=== PATIENT | male | born 2000 | race Caucasian/White ===

== ENCOUNTER → 2024-05-23 | Outpatient (CLI) | payer SELFPAY ==
[2024-05-23 12:28] LABS: Absolute Lymphocyte Count 1.62 X10^3/uL (0.83-4.51); Absolute Neutrophil Count 6.6 X10^3/uL (2.0-7.7); Basophil# 0.04 X10^3/uL; Basophil% 0.4 % (0-1); Eosinophil# 0.09 X10^3/uL; Hematocrit 41.6 % (40-54); Hemoglobin 13.3 g/dL (13.0-16.5); Lymphocyte # 1.62 X10^3/ul (0.83-4.51); Lymphocyte % 18.1 % (19-41); Mean Corpuscular Hgb 30.6 pg (27.0-32.0); Mean Corpuscular Volume 95.9 fL (80-94); Monocyte# 0.59 X10^3/uL; Monocyte% 6.6 % (0-10); NRBC Flagged by Analyzer 0 % (0-5); Neutrophil % 73.7 % (47-70); Platelet Count 196 K/mm3 (150-450); RBC Distribution Width CV 13.8 % (11.6-14.6); RBC Distribution Width SD 49.1 fl (35.1-43.9); Red Blood Count 4.34 M/mm3 (4.6-6.2)
[2024-05-23 12:40] LABS: ALB/GLOB Ratio 1.1 RATIO (0.9-2.4); AST(SGOT) 13 U/L (15-37); Alanine Aminotransfer ALT/SGPT 35 U/L (16-61); Albumin, Serum 3.9 g/dL (3.2-5.0); Alkaline Phosphatase 55 U/L (45-117); Anion Gap 7 (5-15); BUN 27 mg/dL (7-18); BUN/Creat Ratio 43.5 RATIO (10-20); Calcium,Total 9.8 mg/dL (8.5-10.1); Chloride 105 mmol/L (98-107); Cholesterol 164 mg/dL (200); Creatinine, Serum 0.62 mg/dL (0.70-1.30); EST Glomerular Filtration Rate 168 mL/min (>60); Est Glom Filt Rate - Afr Amer 203 mL/min (>60); Globulin 3.6 g/dL (2.2-4.2); Glucose 96 mg/dL (74-106); High Density Lipoprotein 57 mg/dL; Potassium 3.9 mmol/L (3.5-5.1); Protein, Total 7.5 g/dL (6.4-8.2); Sodium Level 138 mmol/L (136-145); Triglycerides 49 mg/dL; Very Low Density Lipoprotein 10 mg/dL (5-40)
== END | disposition home or self-care (01) ==
LOC: BFHLAB 09:26
PROVIDERS: PCP Nurse Practitioner Family; Referring Provider Nurse Practitioner Family; Visit Provider Nurse Practitioner Family
DX: Z00.01 Encounter for general adult medical examination with abnormal findings (principal)
CPT/HCPCS: 36415; 80053; 80061; 85025

== ENCOUNTER 2024-07-11 09:07 | Emergency (ER) | payer OTHER, SELFPAY ==
[2024-07-11 09:07] VITALS: BP 122/96; PULSE 52; RESP 18; TEMP 37.2; O2SAT 100; BMI 30.3
--- NOTE | 2024-07-11 09:16 | CT_ITS ---
STUDY: CT ABDOMEN AND PELVIS WITH CONTRAST REASON FOR EXAM: Male, 24 years old. Lower abd pain, left abdomen pain RADIATION DOSAGE (If Supplied By Facility): CTDIvol = ( 16.39 ) mGy, DLP = ( 1105.58 ) mGycm TECHNIQUE: Transaxial images were obtained from the dome of the diaphragm to the symphysis pubis without oral contrast. IV 100mL Isovue-370 was administered. Sagittal and coronal images were reconstructed. Individualized dose optimization techniques were used for this CT. COMPARISON: None. FINDINGS: The visualized lung bases are unremarkable. The visualized portions of the heart are within normal limits. Normal liver. Normal gallbladder and extrahepatic biliary system. Normal spleen. Normal pancreas. Normal bilateral adrenal glands. Normal right kidney. Normal left kidney. There is fluid filled stomach. Fluid is seen within multiple nondilated small bowel loops. Fluid is seen within the mesenteric fat at the level of the root of the mesentery. A small amount of free fluid is seen in the cul-de-sac. Findings are suggestive of a gastroenteritis. Normal colon. The appendix is visualized and appears normal. Normal abdominal aorta. Normal inferior vena cava. Normal retroperitoneum. Normal urinary bladder. Normal abdominal wall. Normal osseous structures. CT/Abdomen/Pelvis W IV Cont ONLY IMPRESSION: Fluid-filled small bowel loops with fluid in the root of the mesentery as well as small amount of free fluid in the pelvis. Findings are suggestive of gastroenteritis. Electronically Signed: Rafat Rivera MD at 10:12 EST ,
[2024-07-11 09:24] LABS: Absolute Lymphocyte Count 1.44 X10^3/uL (0.83-4.51); Absolute Neutrophil Count 8.2 X10^3/uL (2.0-7.7); Basophil# 0.05 X10^3/uL; Basophil% 0.5 % (0-1); Eosinophil# 0.03 X10^3/uL; Eosinophils% 0.3 % (0-5); Hematocrit 44.8 % (40-54); Lymphocyte # 1.44 X10^3/ul (0.83-4.51); Lymphocyte % 13.8 % (19-41); Mean Corp Hgb Conc 33.5 g/dL (32-36); Mean Corpuscular Hgb 31.5 pg (27.0-32.0); Mean Corpuscular Volume 94.1 fL (80-94); Mean Platelet Vol. 9.3 fl (6.2-12.0); Monocyte# 0.63 X10^3/uL; Monocyte% 6.1 % (0-10); NRBC Flagged by Analyzer 0 % (0-5); Neutrophil # 8.21 X10^3/uL (2.7-7.7); Neutrophil % 78.8 % (47-70); Platelet Count 204 K/mm3 (150-450); RBC Distribution Width CV 12.9 % (11.6-14.6); RBC Distribution Width SD 45.1 fl (35.1-43.9); Red Blood Count 4.76 M/mm3 (4.6-6.2); White Blood Count 10.4 K/mm3 (4.4-11.0)
[2024-07-11] MEDS: 0.9% Normal Saline (1000mL) 1,000 ML 999 ML IV (09:24)
[2024-07-11] MEDS: Morphine 4 MG/ML Syringe IV (09:24)
[2024-07-11] MEDS: Ondansetron 4 MG/2 ML Vial IV (09:24)
--- NOTE | 2024-07-11 09:30 | EDS_ITS ---
HPI History of Present Illness Chief Complaint: Abd Pain Narrative Narrative: Patient is a 24-year-old male with past medical history of arthritis who presents to the emergency department with a chief complaint of abdominal pain radiating to his back. Patient states that around 7:00 this morning he noted that he developed abdominal pain and then nausea. Patient states that he has not had any previous abdominal surgeries states that he still has his appendix and his gallbladder. Patient denies any recent sick contacts. He states that this has happened in the past and he had a full workup including a CT scan and everything came back normal. Patient rates his pain a 8 out of 10 currently. Denies any history of kidney stones. [facility] Medical History Arthritis Home Medications ?Medication ?Instructions ?Recorded ?Last Taken ?Type No Known/Unobtainable [No Known 10/03/14 Unknown History Home Medications] Allergy/AdvReac Type Severity Reaction Status Date / Time acetaminophen (From [place]) Allergy Other Verified 07/11/24 09:07 hydrocodone bitartrate (From Allergy Other Verified 07/11/24 09:07 [place]) Surgical History History of ankle surgery Social History Smoking Status: Former smoker ROS ROS ED ROS Narrative Constitutional: Denies any fevers, chills, lightheadedness, dizziness, Eyes: Denies change in vision double vision blurry vision Cardiovascular: Denies chest pain or palpitations Respiratory: Denies coughing wheezing shortness of breath Abdomen: Complains of abdominal pain and nausea as noted above denies any vomiting or diarrhea : Denies any urinary symptoms Neurological: Denies any numbness, weakness, tingling Musculoskeletal: Complains of back pain and as noted above Skin: Denies any rashes or lesions EXAM Physical Exam Narrative Exam Narrative: General: Patient lying in bed resting comfortably did not appear to be acute distress Head: Atraumatic, normocephalic Eyes: PERRL bilateral, EOMI bilateral, no conjunctival injection noted Neck: Soft, supple, trachea midline Cardiovascular: Regular rate and rhythm no murmurs gallops rubs noted Respiratory: Clear to auscultation bilaterally Abdomen: Soft, nondistended, tender to palpation in the left lower quadrant no rebound or guarding on exam, bowel sounds present x 4 Extremities: +5/5 strength noted in the bilateral upper and lower extremities, no pedal edema on exam Neurological: Patient following commands knew that he was at [facility] years 2023 Skin: Warm, dry, intact no rashes or lesions noted Const Vital Signs: 07/11/24 09:07 Temperature 99 F Temperature Source Temporal Pulse Rate 52 L Respiratory Rate 18 Blood Pressure 122/96 H Blood Pressure Mean 104 Pulse Ox 100 Oxygen Delivery Method Room Air MDM MDM MDM Narrative Medical decision making narrative: Patient is a 24-year-old male who presented to the emergency department chief complaint of abdominal pain and nausea. Patient will have a workup performed here on the differential diagnose includes Melamin to appendicitis, diverticulitis, pancreatitis, urolithiasis, UTI. Once workup is obtained reviewed he will be reevaluated. Patient be given morphine Zofran. Lab Data Labs: Laboratory Results - last 24 hr 07/11/24 09:19 WBC 10.4 RBC 4.76 Hgb 15.0 Hct 44.8 MCV 94.1 H MCH 31.5 MCHC 33.5 RDW Std Deviation 45.1 H RDW Coeff of Judy 12.9 Plt Count 204 MPV 9.3 Immature Gran % (Auto) 0.500 Neut % (Auto) 78.8 H Lymph % (Auto) 13.8 L [place] % (Auto) 6.1 Eos % (Auto) 0.3 Baso % (Auto) 0.5 Absolute Neuts (auto) 8.2 H Absolute Lymphs (auto) 1.44 Nucleated RBC % 0 Discharge Plan Triage Chief Complaint: Abd Pain ED Provider: Hilton Medina Dx/Rx/DC Orders Prescriptions: No Action No Known Home Medications Primary Care Provider: Keely Bear Referrals: Keely Bear, RV DETAILER-C [Primary Care Provider] - Print Language: Maori
--- NOTE | 2024-07-11 09:30 | EX.ED.DYSGE1 ---
HPI History of Present Illness Chief Complaint: Abd Pain Narrative Narrative: Patient is a 24-year-old male with past medical history of arthritis who presents to the emergency department with a chief complaint of abdominal pain radiating to his back. Patient states that around 7:00 this morning he noted that he developed abdominal pain and then nausea. Patient states that he has not had any previous abdominal surgeries states that he still has his appendix and his gallbladder. Patient denies any recent sick contacts. He states that this has happened in the past and he had a full workup including a CT scan and everything came back normal. Patient rates his pain a 8 out of 10 currently. Denies any history of kidney stones. PFSH PFS Medical History Arthritis Home Medications ?Medication ?Instructions ?Recorded ?Last Taken ?Type hyoscyamine sulfate 0.125 mg 0.125 mg PO Q6H PRN dyspepsia #20 07/11/24 Unknown Rx tablet (Levsin) tabs ondansetron 4 mg disintegrating 4 mg PO Q6H PRN nausea and 07/11/24 Unknown Rx tablet vomiting #20 tabs Allergy/AdvReac Type Severity Reaction Status Date / Time acetaminophen (From [place]) Allergy Other Verified 07/11/24 09:07 hydrocodone bitartrate (From Allergy Other Verified 07/11/24 09:07 [place]) Surgical History History of ankle surgery Social History Smoking Status: Former smoker ROS ROS ED ROS Narrative Constitutional: Denies any fevers, chills, lightheadedness, dizziness, Eyes: Denies change in vision double vision blurry vision Cardiovascular: Denies chest pain or palpitations Respiratory: Denies coughing wheezing shortness of breath Abdomen: Complains of abdominal pain and nausea as noted above denies any vomiting or diarrhea : Denies any urinary symptoms Neurological: Denies any numbness, weakness, tingling Musculoskeletal: Complains of back pain and as noted above Skin: Denies any rashes or lesions EXAM Physical Exam Narrative Exam Narrative: General: Patient lying in bed resting comfortably did not appear to be acute distress Head: Atraumatic, normocephalic Eyes: PERRL bilateral, EOMI bilateral, no conjunctival injection noted Neck: Soft, supple, trachea midline Cardiovascular: Regular rate and rhythm no murmurs gallops rubs noted Respiratory: Clear to auscultation bilaterally Abdomen: Soft, nondistended, tender to palpation in the left lower quadrant no rebound or guarding on exam, bowel sounds present x 4 Extremities: +5/5 strength noted in the bilateral upper and lower extremities, no pedal edema on exam Neurological: Patient following commands knew that he was at [facility] years 2023 Skin: Warm, dry, intact no rashes or lesions noted Const Vital Signs: 07/11/24 09:07 07/11/24 11:31 Temperature 99 F 97.9 F Temperature Source Temporal Oral Pulse Rate 52 L 69 Respiratory Rate 18 15 Blood Pressure 122/96 H 134/72 H Blood Pressure Mean 104 92 Pulse Ox 100 98 Oxygen Delivery Method Room Air Room Air MDM MDM MDM Narrative Medical decision making narrative: Patient is a 24-year-old male who presented to the emergency department chief complaint of abdominal pain and nausea. Patient will have a workup performed here on the differential diagnose includes Melamin to appendicitis, diverticulitis, pancreatitis, urolithiasis, UTI. Once workup is obtained reviewed he will be reevaluated. Patient be given morphine Zofran. Patient CBC reviewed and showed no evidence leukocytosis white blood count normal at 10.4, hemoglobin 15, platelet count noted be 204. Patient's sodium normal at 138, potassium normal at 4.2, creatinine normal at 0.82. Patient's AST and ALT were 16 and 28 respectively. Patient's lipase normal at 19. Patient's urinalysis reviewed and showed no evidence of infection. Patient CT abdomen pelvis with IV contrast reviewed showed fluid filled small bowel loops with fluid in the root of the mesentery as well as small amount of free fluid in the pelvis findings suggestive of gastroenteritis. On reevaluation the patient he is feeling much improved. Patient states that he has will lump on his left scrotum I did perform a testicular exam there is no lump noted in the testicle itself this is on the skin and appears to be a pimple in nature, no testicular tenderness bilaterally, no tenderness over the epididymis bilaterally, no urethral discharge noted, no concern for inguinal hernia, vertical lie of the bilateral testicles no concern for testicular torsion. Did discuss results with the patient he is feeling better he would like to go home at this point time. Patient was encouraged to follow-up with his primary care physician outpatient and return with worsening symptoms or concerns. Prescriptions for Bentyl as well as Zofran will be sent to the pharmacy he was advised to eat a bland diet and advance as tolerated. He is agreeable this plan all question concerns answered he is discharged home in stable condition. Lab Data Labs: Laboratory Results - last 24 hr 07/11/24 07/11/24 09:19 10:10 WBC 10.4 RBC 4.76 Hgb 15.0 Hct 44.8 MCV 94.1 H MCH 31.5 MCHC 33.5 RDW Std Deviation 45.1 H RDW Coeff of Judy 12.9 Plt Count 204 MPV 9.3 Immature Gran % (Auto) 0.500 Neut % (Auto) 78.8 H Lymph % (Auto) 13.8 L [place] % (Auto) 6.1 Eos % (Auto) 0.3 Baso % (Auto) 0.5 Absolute Neuts (auto) 8.2 H Absolute Lymphs (auto) 1.44 Nucleated RBC % 0 Sodium 138 Potassium 4.2 Chloride 104 Carbon Dioxide 29.0 Anion Gap 5 BUN 20 H Creatinine 0.82 Estim Creat Clear Calc 155.16 Est GFR (MDRD) Af Amer 146 Est GFR (MDRD) Non-Af 121 BUN/Creatinine Ratio 24.2 H Glucose 123 H Calcium 9.9 Total Bilirubin 0.30 AST 16 ALT 28 Alkaline Phosphatase 72 Total Protein 7.7 Albumin 4.2 Globulin 3.5 Albumin/Globulin Ratio 1.2 Lipase 19 Urine Color Yellow Urine Clarity Clear Urine pH 6.0 Ur Specific [place] 1.015 Urine Protein 15 H Urine Glucose (UA) Normal Urine Ketones 15 H Urine Occult Blood Negative Urine Nitrite Negative Urine Bilirubin Negative Urine Urobilinogen Normal Ur Leukocyte Esterase Negative Urine RBC 0 SEEN Urine WBC 0 SEEN Ur Squamous Epith Cells 0 SEEN Urine Bacteria 0 SEEN Urine Mucus 0 SEEN Radiography Diagnostic Testing: Clinical Impression(s) from Imaging Studies Abdomen/Pelvis CT 07/11/24 09:16 IMPRESSION: Fluid-filled small bowel loops with fluid in the root of the mesentery as well as small amount of free fluid in the pelvis. Findings are suggestive of gastroenteritis. Electronically Signed: Rafat Rivera MD at 10:12 EST , Discharge Plan Triage Chief Complaint: Abd Pain ED Provider: Hilton Medina Dx/Rx/DC Orders Clinical Impression: Viral gastroenteritis Prescriptions: New hyoscyamine sulfate [Levsin] 0.125 mg tablet 0.125 mg PO Q6H PRN (Reason: dyspepsia) Qty: 20 0RF ondansetron 4 mg tablet,disintegrating 4 mg PO Q6H PRN (Reason: nausea and vomiting) Qty: 20 0RF Primary Care Provider: Keely Bear Referrals: Keely Bear, WIRE DRAWING MACHINE OPERATOR-C [Primary Care Provider] - Activity Restrictions/Additional Instructions: Follow-up with your primary care physician outpatient setting. Use prescriptions as prescribed. Start with a bland diet and advance as tolerated. Return with worsening symptoms or any other concerns Print Language: Korean Disposition Disposition: Home, Self Care
[2024-07-11 09:41] LABS: ALB/GLOB Ratio 1.2 RATIO (0.9-2.4); AST(SGOT) 16 U/L (15-37); Alanine Aminotransfer ALT/SGPT 28 U/L (16-61); Albumin, Serum 4.2 g/dL (3.2-5.0); Alkaline Phosphatase 72 U/L (45-117); Anion Gap 5 (5-15); BUN 20 mg/dL (7-18); BUN/Creat Ratio 24.2 RATIO (10-20); Calcium,Total 9.9 mg/dL (8.5-10.1); Chloride 104 mmol/L (98-107); Creatinine, Serum 0.82 mg/dL (0.70-1.30); EST Glomerular Filtration Rate 121 mL/min (>60); Est Glom Filt Rate - Afr Amer 146 mL/min (>60); Estimated Creatinine Clearance 155.16 ml/min; Globulin 3.5 g/dL (2.2-4.2); Glucose 123 mg/dL (74-106); Lipase 19 U/L (13-75); Potassium 4.2 mmol/L (3.5-5.1); Protein, Total 7.7 g/dL (6.4-8.2); Sodium Level 138 mmol/L (136-145)
[2024-07-11 10:15] LABS: Bacteria 0 SEEN /hpf (None Seen); Mucous, Urine 0 SEEN /hpf (<or=2+); Red Blood Cells-Urine 0 SEEN /hpf (0-5); Squamous Epithelial Cells - UA 0 SEEN /hpf (0-5); White Blood Cells 0 SEEN /hpf (0-5)
[2024-07-11 10:18] LABS: Color, Urine Yellow (Yellow); Glucose, Dipstick Normal (Normal); Ketone-Dipstick 15 mg/dl (Negative); Leukocyte Esterase-Dipstick Negative /ul (Negative); Nitrite-Dipstick Negative (Negative); Occult Blood-Urine Negative /ul (Negative); Protein-Dipstick 15 mg/dl (Negative); Specific Gravity, Urine 1.015 (1.002-1.030); Urine Bilirubin Dipstick Negative (Negative); Urine Clarity Clear (Clear); Urine Urobilinogen Normal (Normal)
[2024-07-11 11:31] VITALS: BP 134/72; PULSE 69; RESP 15; TEMP 36.6; O2SAT 98
[2024-07-11 12:10] VITALS: BP 127/63; PULSE 72; RESP 15; TEMP 36.4; O2SAT 100
== END 2024-07-11 12:11 | disposition home or self-care (01) ==
PROVIDERS: Emergency Provider Emergency Medicine; PCP Nurse Practitioner Family; Visit Provider Emergency Medicine
DX: A08.4 Viral intestinal infection, unspecified (principal); Z87.891 Personal history of nicotine dependence; N50.89 Other specified disorders of the male genital organs
CPT/HCPCS: 74177; 80053; 81001; 83690; 85025; 96361; 96374; 96375; 99283; Q9967; A4216; J2405

== ENCOUNTER 2025-05-11 11:07 | Day surgery (SDC) | payer SELFPAY ==
--- NOTE | 2025-05-08 16:17 | PAT.ANESEVAL ---
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 When Was Last Pacemaker Check QUESTION #4 FULL TEXT: You/Your Family Experience fever (hyperthermia) with Anesthesia Last Oral Intake Last Oral intake: Last Oral Intake NPO since Meds taken in AM with sips of water? Meds patient instructed to take am of surgery PONV PONV - assembly line brazer: PONV - assembly line brazer Female No 05/08/25 14:39 HX of Motion Sickness Yes 05/08/25 14:39 HX of N/V After Surgery Yes 05/08/25 14:39 Non-Smoker Yes 05/08/25 14:39 Duration of Surgery greater No 05/08/25 14:39 than 60 minutes Number of Risk Factors 3 05/08/25 14:39 PONV Score Moderate Risk 05/08/25 14:39 Height & Weight Height & Weight: Anesthesia: Height & Weight Height 5 ft 9 in 07/11/24 09:07 Respiratory Assessment Respiratory Assessment - assembly line brazer: Respiratory Tract Infection Hx - assembly line brazer Hx Respiratory Tract Infection No 05/08/25 14:39 STOP Sleep Apnea STOP Sleep Apnea - assembly line brazer: STOP Sleep Apnea - assembly line brazer Hx Hypertension No 05/08/25 14:39 Hx Sleep Apnea No 05/08/25 14:39 CPAP No 10/03/14 14:43 BIPAP No 10/03/14 14:43 Do you snore loudly (louder No 05/08/25 14:39 than talking or can be heard Do you often feel tired/ No 05/08/25 14:39 fatigued/ sleepy during daytime? Has anyone observed you stop No 05/08/25 14:39 breathing during sleep? STOP Results Negative 05/08/25 14:39 QUESTION #5 FULL TEXT : Do you snore loudly (louder than talking or can be heard through closed doors)? 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 Specify any problems Hx of Preganancy in last 3 N/A 05/08/25 14:39 Months Nurse Filling Out Transfusion JZOLLINGE 05/08/25 14:39 & Questions: Date: 05/08/25 05/08/25 14:39 Time: 14:42 05/08/25 14:39 Patient unable to answer at this time (ie. confused, unrespo /Reproduction History /Reproductive History - assembly line brazer: /Reproductive Hx- assembly line brazer Hx Now No 05/08/25 14:39 Gestational Age (in weeks): EDC: Hx Hx Para Hx Section SAB No 05/08/25 14:39 PFSH Medical History (Updated 05/08/25 @ 14:39 by Kaitlin Reyes) Alcohol use Former smoker Rheumatoid arthritis Abdominal pain Arthritis Home Medications ?Medication ?Instructions ?Recorded ?Last Taken ?Type hyoscyamine sulfate 0.125 mg 0.125 mg PO Q6H PRN dyspepsia #20 07/11/24 Unknown Rx tablet (Levsin) tabs Allergy/AdvReac Type Severity Reaction Status Date / Time No Known Allergies Allergy Verified 05/08/25 14:35 Family History (Updated 03/23/25 @ 09:35 by Jenifer Price) Father Diabetes Other Alcoholism Surgical History History of ankle surgery Social History Smoking Status: Former smoker Audit: Pertinent Findings Pertinent Findings EKG Perinent findings: 04/27/2017. Normal sinus rhythm possible pericarditis. Recommendation Anesthesia Recommendation Anesthesia recommendation: OPTIMIZED for anesthesia
[2025-05-11] VITALS (7 sets, daily range): BP systolic 90–130; BP diastolic 55–90; PULSE 57–75; RESP 16–20; TEMP 36.2–36.6; O2SAT 99–100; BMI 32.5
[2025-05-11] MEDS: Lactated Ringers 1,000 ML 15 ML IV (11:34)
--- NOTE | 2025-05-11 11:51 | PCM.PRE.AN2 ---
ASA Classification* ASA Classification ASA Classification: 2 Assessment & Plan Anesthesia* Anesthesia Assessment Anesthesia Assessment: Discussed sedation and/or anesthesia options, risks, benefits, and alternatives with patient/parents/legal guardian/POA. Questions invited. The patient/parents/legal guardian/POA seems to understand and agrees to proceed with anesthesia plan. Reviewed the physical assessment, medical history, allergy history and patient home medications list prior to surgery/procedure/anesthetic and documented any changes. Performed airway and anesthesia risk assessments. Anesthesia Type Anesthesia Type: MAC History Source History Obtained from:: Patient and Chart Anesthesia Focused Assessment* Temperature: 98 F Pulse Rate: 59 Blood Pressure: 130/82 Respiratory Rate: 16 Pulse Ox: 100 Oxygen Delivery Method: Room Air Airway Assessment Mouth opens: >3 cm Mallampati Score: I Teeth Condition: Intact (braces) Neck Range of motion (ROM): Full ROM Labs Anesthesia Preop lab: CBC WBC, (4.4-11.0) 10.4 K/mm3 07/11/24, 09: RBC, (4.6-6.2) 4.76 M/mm3 07/11/24, 09:19 Hgb, (13.0-16.5) 15.0 g/dL 07/11/24, :19 Hct, (40-54) 44.8 % 07/11/24, :19 Plt Count, (150-450) 204 K/mm3 07/11/24, 09:19 CHEMISTRY Potassium, (3.5-5.1) 4.2 mmol/L 07/11/24, :19 Sodium, (136-145) 138 mmol/L 07/11/24, 09:19 BUN, (7-18) 20 mg/dL H 07/11/24, 09:19 Creatinine, (0.70-1.30) 0.82 mg/dL 07/11/24, :19 Glucose, (74-106) 123 mg/dL H 07/11/24, :19 COAG Pre-Assessment Diagnosis/Proposed Procedure Planned Operative Procedure(s): Colonoscopy,EGD Anesthesia History 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 When Was Last Pacemaker Check QUESTION #4 FULL TEXT: You/Your Family Experience fever (hyperthermia) with Anesthesia Last Oral Intake Last Oral intake: Last Oral Intake NPO since 07:00 05/11/25 11:26 Meds taken in AM with sips of water? Meds patient instructed to take am of surgery PONV PONV - nuclear powerplant mechanic: PONV - nuclear powerplant mechanic Female No 05/08/25 14:39 HX of Motion Sickness Yes 05/08/25 14:39 HX of N/V After Surgery Yes 05/08/25 14:39 Non-Smoker Yes 05/08/25 14:39 Duration of Surgery greater No 05/08/25 14:39 than 60 minutes Number of Risk Factors 3 05/08/25 14:39 PONV Score Moderate Risk 05/08/25 14:39 Height & Weight Height & Weight: Anesthesia: Height & Weight Height 5 ft 7 in 05/11/25 11:26 Weight: 94.1 kg 05/11/25 11:26 Body Mass Index (BMI) 32.5 05/11/25 11:26 Respiratory Assessment Respiratory Assessment - nuclear powerplant mechanic: Respiratory Tract Infection Hx - nuclear powerplant mechanic Hx Respiratory Tract Infection No 05/08/25 14:39 STOP Sleep Apnea STOP Sleep Apnea - nuclear powerplant mechanic: STOP Sleep Apnea - nuclear powerplant mechanic Hx Hypertension No 05/08/25 14:39 Hx Sleep Apnea No 05/08/25 14:39 CPAP No 10/03/14 14:43 BIPAP No 10/03/14 14:43 Do you snore loudly (louder No 05/08/25 14:39 than talking or can be heard Do you often feel tired/ No 05/08/25 14:39 fatigued/ sleepy during daytime? Has anyone observed you stop No 05/08/25 14:39 breathing during sleep? STOP Results Negative 05/08/25 14:39 QUESTION #5 FULL TEXT : Do you snore loudly (louder than talking or can be heard through closed doors)? 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 Specify any problems Hx of Preganancy in last 3 N/A 05/08/25 14:39 Months Nurse Filling Out Transfusion JZOLLINGE 05/08/25 14:39 & Questions: Date: 05/08/25 05/08/25 14:39 Time: 14:42 05/08/25 14:39 Patient unable to answer at this time (ie. confused, unrespo /Reproduction History /Reproductive History - nuclear powerplant mechanic: /Reproductive Hx- nuclear powerplant mechanic Hx Now No 05/08/25 14:39 Gestational Age (in weeks): EDC: Hx Hx Para Hx Section SAB No 05/08/25 14:39 Active Medications Active Medications: Current Medications Generic Name Dose Route Start Last Admin Trade Name Freq PRN Reason Stop Dose Admin Lactated Ringer's 1,000 mls @ 15 mls/hr 05/11/25 11:30 05/11/25 11:34 IV 15 mls/hr .Q48H GIA Administration PFSH Medical History Alcohol use Former smoker Rheumatoid arthritis Abdominal pain Arthritis Home Medications ?Medication ?Instructions ?Recorded ?Last Taken ?Type hyoscyamine sulfate 0.125 mg 0.125 mg PO Q6H PRN dyspepsia #20 07/11/24 Unknown Rx tablet (Levsin) tabs Allergy/AdvReac Type Severity Reaction Status Date / Time No Known Allergies Allergy Verified 05/11/25 11:26 Family History Father Diabetes Other Alcoholism Surgical History History of ankle surgery Social History Smoking Status: Former smoker Review of Systems (Anesthesia) ROS Narrative System reviewed and no additional complaints, except as documented.
--- NOTE | 2025-05-11 11:59 | HP.PCM_ITS ---
HPI - General General Date of Admission: 05/11/25 Date of Service: 05/11/25 Chief Complaint: abdominal pain HPI Narrative TOSHIA NICOLE, is a 25 M who presents [Chief Complaint: Abdominal pain Pt referred from PCP for abdominal pain. Pt was hospitalized at [place] in January 2025 for his abd pain. He had CT showing dilated fluid-filled small bowel suspicious for small bowel obstruction. Transition not well visualized. and gastric distention. Diagnosed with an ileus. He was placed on bowel rest and NG tube. Discharged with Augmentin 500 mg every 8 hours for one week. OV 8.. patient continues to have abdominal pain. Pain starts in the epigastric region and radiates to the lower quadrants. Pain started in June 2024. It is relieved with Levsin. It is not triggered with oral intake. He has noticed that not eating can be a trigger. Pain is a few times per week. He has 1-2 small bowel movements per day. He did have a CT that showed that he was constipated so he took prune juice and laxatives. He takes ibuprofen almost daily. He denies any prior abdominal surgeries. Patient notes over the past 17 months he has intentionally lost 200 pounds with diet and exercise. ondansetron Discontinued Reason: Pt no longer taking 4 mg PO Q6H PRN 20 tabs 0RF nausea and vomiting ] PFSH Medical History Alcohol use Former smoker Rheumatoid arthritis Abdominal pain Arthritis Home Medications ?Medication ?Instructions ?Recorded ?Last Taken ?Type hyoscyamine sulfate 0.125 mg 0.125 mg PO Q6H PRN dyspe psia #20 07/11/24 Unknown Rx tablet (Levsin) tabs Allergy/AdvReac Type Severity Reaction Status Date / Time No Known Allergies Allergy Verified 05/11/25 11:26 Family History Father Diabetes Other Alcoholism Surgical History History of ankle surgery Social History Smoking Status: Former smoker ROS Constitutional Constitutional: Denies fatigue, fever(s), poor appetite, weight gain or weight loss Gastrointestinal Gastrointestinal: Denies belching, bloating, change in bowel habits, change in stool character, chewing difficulty, coffee ground emesis, constipation, cramping, diarrhea, dyspepsia, dysphagia, early satiety, excessive flatus, fecal incontinence, heartburn, hematemesis, hematochezia, hemorrhoids, loose stools, melena, nausea, odynophagia, rectal bleeding, tenesmus, vomiting or weight changes Vital Signs Vital Signs Vital Signs: 05/11/25 11:26 05/11/25 11:26 05/11/25 11:55 Temperature 98 F 98 F Temperature Source Temporal Pulse Rate 59 L 59 L Respiratory Rate 16 16 Respiratory Pattern Normal Blood Pressure 130/82 H 130/82 H Blood Pressure Mean 98 Blood Pressure Source Monitor Blood Pressure Position Semi-Fowlers Blood Pressure Location Right Arm Pulse Ox 100 100 Oxygen Delivery Method Room Air Room Air Weight Weight: 207 lb 7.28 oz Body Mass Index (BMI) 32.5 Physical Exam Const alert, oriented x3, no apparent distress and healthy appearing General Appearance: cooperative GI normal to inspection, nondistended, normoactive bowel sounds, soft to palpation, non-tender and non-distended Percussion: normal to percussion Rectal Exam: deferred Assessment & Plan Assessment/Plan (1) Diarrhea: (2) IBS (irritable bowel syndrome): PLAN: Assessment and Plan Assessment and Plan (1) Constipation: Status: Acute (2) History of ileus: Status: Acute Plan: Toshia is a 24-year-old male patient here today for evaluation of abdominal pain. Patient endorsing a 200 pound weight loss over the past 17 months which was intentional. In June 2024 patient started to have abdominal pain. This resulted in a few ER visits and hospitalization. He was hospitalized at [place] and in January [address] showing dilated fluid-filled small bowel suspicious for small bowel obstruction. He was admitted and nasogastric tube was placed. His pain did get better at that time but it came back. Recent CT showing constipation although he does not feel constipated. Patient's ileus may have been related to his rapid weight loss. I have concern for SMA syndrome due to rapid weight loss however pain is not typically exacerbated by eating. Will consider CTA. He will undergo EGD and colonoscopy for evaluation of his GI tract. He will continue Levsin for his abdominal pain. - EGD and colonoscopy -Consider CTA - Continue Levsin - Follow-up after endoscopy Medications: Discontinued
--- NOTE | 2025-05-11 12:00 | COLBX_PTH ---
PATIENT: TOSHIA NICOLE LOC: EN U#:[id number] AGE/SX: 25/M ROOM: RE05/11/[address]: Dr. Trevor Cobos DO : 2000 BED: DIS: 05/11/2025 SPEC #: [id number] RECD: 05/11/25 16:25 STATUS: JOVANNY SALLY #: [id number] RAISSA: 05/11/25 12:[address]: Trevor Cobos DEPT: SURGICAL PATHOLOGY RECD BY: Cristian Yanez ENTERED: 05/14/25 11:08 SP TYPE: COLON BX OTHR DR: Keely Bear, ANIMAL HUMANE AGENT SUPERVISOR-C Tissues: A - Duodenum, NOS B - Gastric mucous membrane C - Esophagus, NOS D - Ileum, NOS E - COLON BIOPSY F - Sigmoid colon biopsy Procedures: Special Stain Group I Surgery Specimen Level IV GMS Stain (control) HEADER OPERATION: Colonoscopy, EGD with biopsy PRE-OP DIAGNOSIS: Abdominal pain, short of breath TISSUE SUBMITTED: A- Duodenum biopsy, B- Gastric body biopsy, C- Distal esophagus biopsy, D- Terminal ileum biopsy, E- Random colon biopsy, F- Sigmoid polyp MICROSCOPIC DIAGNOSIS A. Duodenum, biopsy: * No specific pathologic change. * Negative for increased intraepithelial lymphocytes. B. Gastric body, biopsy: * Oxyntic mucosa with mild chronic inflammation. * Negative for Helicobacter-like organisms (H&E). C. Distal esophagus, biopsy: * Squamous mucosa with mild acute inflammation and rare eosinophils. * Columnar mucosa with reactive epithelial change, negative for goblet cell metaplasia. * PASD is negative for fungal organisms. D. Terminal ileum, biopsy: * No specific pathologic change. E. Colon, random, biopsy: * No specific pathologic change. F. Sigmoid colon, polyp, biopsy: * Hyperplastic polyp. MICROSCOPIC DESCRIPTION Slides are reviewed. All matched controls reacted appropriately. These tests were developed and their performance characteristics determined by [facility]. They may not have been cleared or approved by the U.S. Food and Drug Administration. The FDA has determined that such clearance or approval is not necessary. The above immunohistochemical markers and/or special stains have been reviewed by the Pathologist. GROSS DESCRIPTION A. Received in fixative is one container labeled with the patient's name and designated Duodenum biopsy. The specimen consists of two irregular fragments of hopkins tissue that measure 0.2 and 0.7 cm. The specimen is totally submitted in one cassette. B. Received in fixative is one container labeled with the patient's name and designated Gastric body biopsy. The specimen consists of two irregular fragments of hopkins tissue that measure 0.5 and 0.6 cm. The specimen is totally submitted in one cassette. C. Received in fixative is one container labeled with the patient's name and designated Distal esophagus biopsy. The specimen consists of two irregular fragments of hopkins tissue that measure 0.4 and 0.5 cm. The specimen is totally submitted in one cassette. D. Received in fixative is one container labeled with the patient's name and designated Terminal ileum biopsy. The specimen consists of multiple irregular fragments of hopkins tissue that in aggregate measure 1 x 0.6 x 0.1 cm. The specimen is totally submitted in one cassette. E. Received in fixative is one container labeled with the patient's name and designated Random colon biopsy. The specimen consists of multiple irregular fragments of hopkins tissue that in aggregate measure 1 x 0.7 x 0.1 cm. The specimen is totally submitted in one cassette. F. Received in fixative is one container labeled with the patient's name and designated Sigmoid polyp. The specimen consists of one irregular fragment of hopkins tissue that measures 0.3 cm. The specimen is totally submitted in one cassette. [place] 05/14/2025 CPT:58660c5,40395
--- NOTE | 2025-05-11 12:37 | PCM.POST.ANE ---
Anesthesia: Postop Eval I Current Vital Signs Temperature: 97.1 F Pulse Rate: 75 Blood Pressure: 90/55 Respiratory Rate: 20 Pulse Ox: 99 Assessment Airway patent: Yes Spontaneous unlabored respirations: Yes nausea: No Vomiting: No Anesthesia Complication: No Fluid Hydration Crystalloid volume administer (ml): 200 Total IV fluid infused: 200 Progress Note Anesthesia document: Postop Eval 1 completed: Yes
--- NOTE | 2025-05-11 12:40 | OP.EGD_ITS ---
Patient Name: Ginger Cleaning Procedure Date: 05/11/2025 11:58 AM Date of : 2000 Age: 25 Procedure: Upper GI endoscopy Indications: Epigastric abdominal pain, Abdominal pain in the right upper quadrant, Abdominal pain in the left upper quadrant, Functional Dyspepsia, Failure to respond to medical treatment Providers: Trevor Cobos DO Referring MD: Moses Blue Medicines: Monitored Anesthesia Care Patient Profile: This is a 25 year old male. Refer to note in patient chart for documentation of history and physical. Patient has symptoms of acute abdominal cramping, acute abdominal distention, chronic right upper quadrant abdominal pain, acute left upper quadrant abdominal pain, acute epigastric abdominal pain, acute dyspepsia and acute nausea. Complications: No immediate complications. Procedure: Pre-Anesthesia Assessment: - Prior to the procedure, a History and Physical was performed, and patient medications and allergies were reviewed. The patient is competent. The risks and benefits of the procedure and the sedation options and risks were discussed with the patient. All questions were answered and informed consent was obtained. Patient identification and proposed procedure were verified by the physician in the pre-procedure area. Mental Status Examination: alert and oriented. Airway Examination: normal oropharyngeal airway and neck mobility. Respiratory Examination: clear to auscultation. CV Examination: normal. Prophylactic Antibiotics: The patient does not require prophylactic antibiotics. Prior Anticoagulants: The patient has taken no anticoagulant or antiplatelet agents except for NSAID medication. ASA Grade Assessment: II - A patient with mild systemic disease. After reviewing the risks and benefits, the patient was deemed in satisfactory condition to undergo the procedure. The anesthesia plan was to use monitored anesthesia care (MAC). Immediately prior to administration of medications, the patient was re-assessed for adequacy to receive sedatives. The heart rate, respiratory rate, oxygen saturations, blood pressure, adequacy of pulmonary ventilation, and response to care were monitored throughout the procedure. The physical status of the patient was re-assessed after the procedure. After obtaining informed consent, the endoscope was passed under direct vision. Throughout the procedure, the patient's blood pressure, pulse, and oxygen saturations were monitored continuously. The Colonoscope was introduced through the mouth, and advanced to the fourth part of the duodenum. Small bowel enteroscopy was deemed necessary. The upper GI endoscopy was accomplished without difficulty. The patient tolerated the procedure well. Scope In: 12:09:03 PM Scope Out: 12:19:10 PM Total Procedure Duration Time 0 hours 10 minutes 7 seconds Findings: The Z-line was irregular and was found 40 cm from the incisors. Biopsies were taken with a cold forceps for histology. Verification of patient identification for the specimen was done. Estimated blood loss was minimal. Patchy mildly congested mucosa was found in the gastric body. Biopsies were taken with a cold forceps for histology. Biopsies were taken with a cold forceps for Helicobacter pylori testing. Verification of patient identification for the specimen was done. Estimated blood loss was minimal. Patchy mildly erythematous mucosa without active bleeding and with no stigmata of bleeding was found in the entire duodenum. Biopsies were taken with a cold forceps for histology. Verification of patient identification for the specimen was done. Estimated blood loss was minimal. A small hiatal hernia was present. Impression: - Z-line irregular, 40 cm from the incisors. Biopsied. - Congestive gastropathy. Biopsied. - Erythematous duodenopathy. Biopsied. Recommendation: - Discharge patient to home. - Resume previous diet. - Continue present medications. - Await pathology results. Procedure Code(s): --- Professional --- 79576, Small intestinal endoscopy, enteroscopy beyond second portion of duodenum, not including ileum; with biopsy, single or multiple CPT copyright 2021 [employer]. All rights reserved. The codes documented in this report are preliminary and upon lamp developer review may be revised to meet current compliance requirements. Trevor Cobos DO 05/11/2025 12:39:57 PM This report has been signed electronically. Number of Addenda: 0 Note Initiated On: 05/11/2025 11:58 AM
--- NOTE | 2025-05-11 12:40 | OP.PROVAT_ITS ---
05/11/2025 Moses Blue Re : Upper GI endoscopy procedure for Ginger Cleaning Dear Chema This procedure was performed on Sunday, May 11, 2025. My impressions and recommendations are as follows: Impressions : - Z-line irregular, 40 cm from the incisors. Biopsied. - Congestive gastropathy. Biopsied. - Erythematous duodenopathy. Biopsied. Recommendations : - Discharge patient to home. - Resume previous diet. - Continue present medications. - Await pathology results. My findings are described in the full procedure note, which is enclosed. If I can be of further assistance, please feel free to contact me at . Sincerely, Trevor Cobos, 05/11/2025 12:39:57 PM This report has been signed electronically.
--- NOTE | 2025-05-11 12:43 | OP.COLON_ITS ---
Patient Name: Ginger Cleaning Procedure Date: 05/11/2025 12:19 PM Date of : 2000 Age: 25 Procedure: Colonoscopy Indications: Abdominal pain in the left lower quadrant, Periumbilical abdominal pain, Abdominal pain in the right lower quadrant, Clinically significant diarrhea of unexplained origin Providers: Trevor Cobos DO Referring MD: Moses Blue Medicines: Monitored Anesthesia Care Patient Profile: This is a 25 year old male. Refer to note in patient chart for documentation of history and physical. Patient has symptoms of acute abdominal cramping, acute abdominal distention, chronic right upper quadrant abdominal pain, acute left upper quadrant abdominal pain, acute epigastric abdominal pain, acute dyspepsia and acute nausea. Last Colonoscopy: none. The patient's first colonoscopy is today. Complications: No immediate complications. Procedure: Pre-Anesthesia Assessment: - Prior to the procedure, a History and Physical was performed, and patient medications and allergies were reviewed. The patient is competent. The risks and benefits of the procedure and the sedation options and risks were discussed with the patient. All questions were answered and informed consent was obtained. Patient identification and proposed procedure were verified by the physician in the pre-procedure area. Mental Status Examination: alert and oriented. Airway Examination: normal oropharyngeal airway and neck mobility. Respiratory Examination: clear to auscultation. CV Examination: normal. Prophylactic Antibiotics: The patient does not require prophylactic antibiotics. Prior Anticoagulants: The patient has taken no anticoagulant or antiplatelet agents except for NSAID medication. ASA Grade Assessment: II - A patient with mild systemic disease. After reviewing the risks and benefits, the patient was deemed in satisfactory condition to undergo the procedure. The anesthesia plan was to use monitored anesthesia care (MAC). Immediately prior to administration of medications, the patient was re-assessed for adequacy to receive sedatives. The heart rate, respiratory rate, oxygen saturations, blood pressure, adequacy of pulmonary ventilation, and response to care were monitored throughout the procedure. The physical status of the patient was re-assessed after the procedure. After I obtained informed consent, the scope was passed under direct vision. Throughout the procedure, the patient's blood pressure, pulse, and oxygen saturations were monitored continuously. The Colonoscope was introduced through the anus and advanced to the terminal ileum. The colonoscopy was performed without difficulty. The patient tolerated the procedure well. The quality of the bowel preparation was adequate. The terminal ileum, ileocecal valve, appendiceal orifice, and rectum were photographed. Scope In: 12:20:02 PM Scope Withdrawal Time 0 hours 10 minutes 18 seconds Scope Out: 12:33:34 PM Total Procedure Duration Time 0 hours 13 minutes 32 seconds Findings: The perianal and digital rectal examinations were normal. A 7 mm polyp was found in the sigmoid colon. The polyp was sessile. The polyp was removed with a cold biopsy forceps. Resection and retrieval were complete. Verification of patient identification for the specimen was done. Estimated blood loss was minimal. An area of mildly congested mucosa was found in the entire colon. Biopsies were taken with a cold forceps for histology. Verification of patient identification for the specimen was done. Estimated blood loss was minimal. A patchy area of the distal ileum and terminal ileum was congested. Biopsies were taken with a cold forceps for histology. Verification of patient identification for the specimen was done. Estimated blood loss was minimal. Impression: - One 7 mm polyp in the sigmoid colon, removed with a cold biopsy forceps. Resected and retrieved. - Congested mucosa in the entire examined colon. Biopsied. - Congested mucosa in the distal ileum and in the terminal ileum. Biopsied. Recommendation: - Discharge patient to home. - Resume previous diet. - Continue present medications. - Await pathology results. - Repeat colonoscopy at age 44 for screening purposes. Procedure Code(s): --- Professional --- 73726, Colonoscopy, flexible; with biopsy, single or multiple CPT copyright 2021 [employer]. All rights reserved. The codes documented in this report are preliminary and upon bracelet form coverer review may be revised to meet current compliance requirements. Trevor Cobos DO 05/11/2025 12:42:28 PM This report has been signed electronically. Number of Addenda: 0 Note Initiated On: 05/11/2025 12:19 PM
--- NOTE | 2025-05-11 12:43 | OP.PROVAT_ITS ---
05/11/2025 Moses Blue Re : Colonoscopy procedure for Ginger Cleaning Dear Chema This procedure was performed on Sunday, May 11, 2025. My impressions and recommendations are as follows: Impressions : - One 7 mm polyp in the sigmoid colon, removed with a cold biopsy forceps. Resected and retrieved. - Congested mucosa in the entire examined colon. Biopsied. - Congested mucosa in the distal ileum and in the terminal ileum. Biopsied. Recommendations : - Discharge patient to home. - Resume previous diet. - Continue present medications. - Await pathology results. - Repeat colonoscopy at age 44 for screening purposes. My findings are described in the full procedure note, which is enclosed. If I can be of further assistance, please feel free to contact me at . Sincerely, Trevor Cobos, 05/11/2025 12:42:28 PM This report has been signed electronically.
--- NOTE | 2025-05-11 16:27 | POSTOPAN2_ITS ---
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 Anesthesia Postop Eval I: Fluid Summary Crystalloid volume administer 200 05/11/25 12:39 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
--- NOTE | 2025-05-11 16:27 | PCM.POSTANE2 ---
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 Anesthesia Postop Eval I: Fluid Summary Crystalloid volume administer 200 05/11/25 12:39 AUTO BODY BUILDER APPRENTICE.CSIR (ml) Colloids volume administered ( ml) Blood Product volume administered (ml) Total IV fluid infused 200 05/11/25 12:39 AUTO BODY BUILDER APPRENTICE.CSIR Anesthesia Postop Eval I: Summary Notes Anesthesia Complication No 05/11/25 12:39 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
== END 2025-05-11 13:14 | disposition home or self-care (01) ==
LOC: EN 11:17 → AC 11:18
PROVIDERS: PCP Nurse Practitioner Family; Referring Provider Nurse Practitioner Family; Visit Provider Internal Medicine Gastroenterology
PROC: 0DJD8ZZ Inspection of Lower Intestinal Tract, Via Natural or Artificial Opening Endoscopic (ICD-10-PCS; CPT 45378; principal; 2025-05-11 11:55)
DX: K29.50 Unspecified chronic gastritis without bleeding (principal); Z87.891 Personal history of nicotine dependence; K63.5 Polyp of colon; K58.0 Irritable bowel syndrome with diarrhea; K59.00 Constipation, unspecified; Z87.19 Personal history of other diseases of the digestive system; K44.9 Diaphragmatic hernia without obstruction or gangrene; K20.90 Esophagitis, unspecified without bleeding
CPT/HCPCS: 44361; 45380; 88305; 88312; J2405